=== PATIENT | female | born 1955 ===

== ENCOUNTER 2019-05-01 15:25 | Outpatient (CLI) | payer OTHER ==
[~2019-05-01] VITALS: Ht 165.1 cm; Wt 86.2 kg
== END 2019-05-01 15:40 | disposition home or self-care (01) ==
LOC: OFIC 805 15:25
DX: H93.90 Unspecified disorder of ear, unspecified ear (principal); H69.90 Unspecified Eustachian tube disorder, unspecified ear

== ENCOUNTER 2019-06-15 13:07 | Outpatient (CLI) | payer OTHER ==
[~2019-06-15] VITALS: Ht 152.4 cm; Wt 86.2 kg
== END 2019-06-15 18:28 | disposition home or self-care (01) ==
LOC: OFIC 805 13:07
DX: H92.01 Otalgia, right ear (principal); H69.90 Unspecified Eustachian tube disorder, unspecified ear